=== PATIENT | female | born 2000 | race Caucasian/White ===

== ENCOUNTER 2022-04-02 11:08 | Emergency (ER) | payer SELFPAY ==
[2022-04-02] MEDS ORDERED: Lidocaine 1% 5 ML VIAL INJECT ONE (12:09)
[2022-04-02] MEDS ORDERED: Clindamycin Phosphate in D5W 600 MG in Premix Bag 1 BAG IV ONE ×2 (12:09)
[2022-04-02 13:51] LABS: C. TRACHOMATIS BY PCR NOT DETECTED; N. GONORRHOEAE BY PCR NOT DETECTED
== END 2022-04-02 12:32 | disposition home or self-care (01) ==
LOC: MW.ED 11:08
DX: B37.3 Candidiasis of vulva and vagina (principal); N76.0 Acute vaginitis
CPT/HCPCS: 81001; 81025; 87086; 87480; 87491; 87510; 87591; 87660; 99283